=== PATIENT | female | born 1975 | race Caucasian/White ===

== ENCOUNTER 2018-12-10 18:32 | Emergency (ER) | payer MEDICAID ==
[~2018-12-10] VITALS: Ht 172.7 cm; Wt 45.0 kg
[2018-12-10 18:34] VITALS: BP 121/65
--- NOTE | 2018-12-10 20:05 | NUR ---
pt left without discharge orders. given info on [facility] for rehab. pt refused and said they will not take me if im not on probation. pt states, i getting out of here. having difficulties walking. pushing wheelchair for asst ambulating. pt sitting in front of hospital calling someone for a ride.
== END 2018-12-10 20:10 | disposition home or self-care (01) ==
LOC: ER 18:32
DX: F19.10 Other psychoactive substance abuse, uncomplicated (principal); F10.99 Alcohol use, unspecified with unspecified alcohol-induced disorder; Z86.69 Personal history of other diseases of the nervous system and sense organs; Z88.1 Allergy status to other antibiotic agents; Z88.5 Allergy status to narcotic agent; Z88.8 Allergy status to other drugs, medicaments and biological substances; Y90.9 Presence of alcohol in blood, level not specified
CPT/HCPCS: 99281